=== PATIENT | male | born 1980 | race Caucasian/White ===

== ENCOUNTER 2019-02-05 08:58 | Emergency (ER) | payer BC, OTHER ==
[~2019-02-05] VITALS: Ht 175.3 cm; Wt 74.8 kg
[~2019-02-05 08:58] MED LIST: CARISOPRODOL 3350 MG PO; CLEOCIN HCL150 MG PO; FLEXERIL PO; HYDROCODON-ACE1 EAC7 PO; HYDROCODONE-AP1 EAC6 PO; IBUPROFEN 800800 M1 PO; MEDROLDOSEPACK PO; NOHOMEMEDICATIONS; PERCOCET 5-3251 EACH PO; PERCOCET 7.5-31 EACH PO; VALIUM10 MG PO; VENLAFAXIN75 MG/1 T2 PO; VICODIN 5-5001 EACH PO
--- NOTE | 2019-02-05 09:13 | EKG ---
[address] [address] ELECTROCARDIOGRAM REPORT Name: LEVIPRAVIN Room #: [facility] M.R.#: [id number] ������������������ Admission: ������������������ Attend Phys: Discharge: ������������������ Date of : 78 Report #: [id number] ����������������������������������������������������������������� [id number] THIS REPORT FOR: //name// [facility] ED Test Date: 2019-02-05 Test Time: 09:02:53 Pat Name: PRAVIN SIMS Department: Room: Gender: Highway Maintenance Worker: ALEXANDER : 1980 Requested By: Robert Castillo Order Number: [id number] MD: Jose Cruz Measurements Intervals [place] Rate: 61 P: 47 VA: 152 QRS: 56 QRSD: 91 T: 3 QT: 390 QTc: 393 Interpretive Statements Sinus rhythm ST elevation early repolarization No previous ECG available for comparison Electronically Signed On 02-05-2019 9:13:07 CDT by Jose Cruz [email or web address] ��������������������������������������������� <ELECTRONICALLY SIGNED> ���������������������������������������� By: Jose Cruz MD ��������������������������������������������� 02/05/19 0913 1 09 Jose Cruz MD /EPI
[2019-02-05 09:22] LABS: BASOPHILS 0.3 % (0.0-2.0); EOSINOPHILS 0.7 % (0.0-3.0); HEMOGLOBIN 15.3 gm/dL (14.0-18.0); LYMPHOCYTES 12.1 % (24.0-44.0); MCH 29.4 pg (26.0-34.0); MCHC 34.1 g/dL (28.0-37.0); MCV 86.2 fL (80.0-100.0); MONOCYTES 8.7 % (1.0-8.0); POLYS 78.2 % (36.0-66.0); RBC 5.22 mil/uL (4.50-6.00); RDW 13.3 % (10.5-14.5); WBC 8.9 thou/uL (4.0-11.0)
[2019-02-05 09:32] LABS: ANION GAP 8 mmol/L (7-16); BUN 17 mg/dL (7-18); CALCIUM 9.3 mg/dL (8.5-10.1); CHLORIDE 102 mmol/L (98-107); CO2 27 mmol/L (21-32); CREATININE 1.1 mg/dL (0.7-1.3); GLUCOSE 100 mg/dL (74-106); POTASSIUM 4.1 mmol/L (3.5-5.1); SODIUM 137 mmol/L (136-145)
[2019-02-05 09:36] LABS: ALBUMIN 4.2 g/dL (3.4-5.0); DIRECT BILIRUBIN 0.2 mg/dL (<0.1-0.3); MAGNESIUM 1.9 mg/dL (1.8-2.4); TOTAL BILIRUBIN 0.8 mg/dL (<0.1-1.0); TOTAL PROTEIN 7.5 g/dL (6.4-8.2)
[2019-02-05 09:42] LABS: TROPONIN-I <0.06 ng/mL (<0.06)
[2019-02-05 10:46] LABS: PLATELET COUNT 152 thou/uL (150-400)
[2019-02-05] MEDS ORDERED: TRAMADOL 50 MG50 MG PO (11:16)
[2019-02-05] MEDS ORDERED: PREDNISONE 20 M20 MG PO (11:16)
[2019-02-05 11:18] LABS: AMP/METHAMP Negative (Negative); BARBITURATES Negative (Negative); BENZODIAZEPINES Negative (Negative); COCAINE Negative (Negative); METHADONE Negative (Negative); OPIATES Negative (Negative); PCP Negative (Negative)
[2019-02-05 11:29] VITALS: BP 121/64
== END 2019-02-05 11:57 | disposition home or self-care (01) ==
LOC: ER 08:58
PROVIDERS: Emergency Medicine
DX: R07.89 Other chest pain (principal); G89.29 Other chronic pain; F17.290 Nicotine dependence, other tobacco product, uncomplicated; Z88.5 Allergy status to narcotic agent

== ENCOUNTER 2019-03-07 09:07 | Emergency (ER) | payer BC, OTHER ==
[~2019-03-07] VITALS: Ht 172.7 cm; Wt 68.0 kg
[~2019-03-07 09:07] MED LIST changes: +PREDNISONE 20 M20 MG PO; +TRAMADOL 50 MG50 MG PO
[2019-03-07 10:38] LABS: ABSOLUTE NEUTROPHILS 3.4 thou/uL (1.4-8.2); BASOPHILS 0.4 % (0.0-2.0); EOSINOPHILS 1.2 % (0.0-3.0); HEMATOCRIT 43.3 % (42.0-52.0); HEMOGLOBIN 14.5 gm/dL (14.0-18.0); LYMPHOCYTES 28.3 % (24.0-44.0); MCH 29.1 pg (26.0-34.0); MCHC 33.6 g/dL (28.0-37.0); MCV 86.7 fL (80.0-100.0); MONOCYTES 6.9 % (1.0-8.0); POLYS 63.2 % (36.0-66.0); RBC 4.99 mil/uL (4.50-6.00); RDW 13.4 % (10.5-14.5); WBC 5.4 thou/uL (4.0-11.0)
[2019-03-07 10:48] LABS: CALCIUM 9.3 mg/dL (8.5-10.1); CREATININE 1.1 mg/dL (0.7-1.3); POTASSIUM 3.9 mmol/L (3.5-5.1)
[2019-03-07 11:10] LABS: PLATELET COUNT 177 thou/uL (150-400)
[2019-03-07 12:25] VITALS: BP 112/68
== END 2019-03-07 12:13 | disposition home or self-care (01) ==
LOC: ER 09:07
PROVIDERS: Emergency Medicine
DX: R06.00 Dyspnea, unspecified (principal); M54.2 Cervicalgia; G89.29 Other chronic pain; Z88.6 Allergy status to analgesic agent; Z88.5 Allergy status to narcotic agent